=== PATIENT | female | born 2000 | race Caucasian/White ===

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

== ENCOUNTER 2022-05-02 04:34 | Emergency (ER) | payer MEDICAID ==
[~2022-05-02] VITALS: Ht 154.9 cm; Wt 52.2 kg
[2022-05-02 04:34] VITALS: BP 103/83
== END 2022-05-02 06:03 | disposition left against medical advice (07) ==
LOC: ER 04:35
DX: R21 Rash and other nonspecific skin eruption (principal); Z53.21 Procedure and treatment not carried out due to patient leaving prior to being seen by health care provider

== ENCOUNTER 2023-03-22 23:45 | Emergency (ER) | payer MEDICAID ==
[~2023-03-22] VITALS: Ht 154.9 cm; Wt 55.6 kg
[2023-03-23] MEDS ORDERED: methylPREDNISolone SOD SUCC 125 MG/2 ML VL IM ONE
[2023-03-23] MEDS ORDERED: diphenhdrAMINE HCL 50 MG/1 ML VL IM ONE
[2023-03-23] MEDS ORDERED: cefTRIAXone SOD 1,000 MG VL IM ONE (00:30)
[2023-03-23] MEDS ORDERED: DIPH-491 PO (00:33)
[2023-03-23] MEDS ORDERED: PRED20TA2 PO (00:33)
[2023-03-23] MEDS ORDERED: CEPH-510 PO (00:33)
[2023-03-23 00:42] VITALS: BP 134/81
== END 2023-03-23 01:10 | disposition home or self-care (01) ==
LOC: ER 23:45
DX: S51.832A Puncture wound without foreign body of left forearm, initial encounter (principal); S51.831A Puncture wound without foreign body of right forearm, initial encounter; S01.83XA Puncture wound without foreign body of other part of head, initial encounter; Z88.0 Allergy status to penicillin; W57.XXXA Bitten or stung by nonvenomous insect and other nonvenomous arthropods, initial encounter; Y93.89 Activity, other specified; Y92.89 Other specified places as the place of occurrence of the external cause; Y99.8 Other external cause status
CPT/HCPCS: 96372; 99284; J0696; J1200; J2930